=== PATIENT | female | born 1980 | race Two or more races ===

== ENCOUNTER 2021-01-22 07:28 | Day surgery (SDC) | payer OTHER ==
[2021-01-22] MEDS ORDERED: PERCOCET 5-3251 EACH PO (13:33)
== END 2021-01-22 16:15 | disposition home or self-care (01) ==
LOC: CIR.AMB 07:28
PROVIDERS: ATTEND Surgery
DX: C73 Malignant neoplasm of thyroid gland (principal); Z20.822 Contact with and (suspected) exposure to COVID-19

== ENCOUNTER 2021-01-23 08:47 | Emergency (ER) | payer OTHER ==
[~2021-01-23] VITALS: Ht 167.6 cm; Wt 72.6 kg
[~2021-01-23 08:47] MED LIST: PERCOCET 5-3251 EACH PO
== END 2021-01-23 15:06 | disposition home or self-care (01) ==
LOC: ER 08:47
DX: K52.9 Noninfective gastroenteritis and colitis, unspecified (principal); R11.11 Vomiting without nausea; E89.0 Postprocedural hypothyroidism

== ENCOUNTER 2021-04-18 09:00 | Inpatient (IN) | payer OTHER ==
[~2021-04-18] VITALS: Ht 165.1 cm; Wt 74.8 kg
[2021-04-24] MEDS ORDERED: PERCOCET 5-3251 EACH PO (08:54)
[2021-04-24] MEDS ORDERED: SYNTHROID112 MCG PO (08:55)
== END 2021-04-24 18:15 | disposition home or self-care (01) | DRG 627 ==
LOC: O/R 04-23 06:41 → SURG 04-23 06:41 → SURH 04-23 07:00 → SURG 04-23 13:26
PROVIDERS: ADMIT Surgery; ATTEND Surgery
PROC: 07T20ZZ Resection of Left Neck Lymphatic, Open Approach (ICD-10-PCS; 2021-04-23)
PROC: 4A12X4Z Monitoring of Cardiac Electrical Activity, External Approach (ICD-10-PCS; 2021-04-23)
PROC: 0GTG0ZZ Resection of Left Thyroid Gland Lobe, Open Approach (ICD-10-PCS; principal; 2021-04-23 07:00)
DX: C73 Malignant neoplasm of thyroid gland (principal)

== ENCOUNTER 2021-07-09 07:58 | Outpatient (CLI) | payer OTHER ==
[~2021-07-09 07:58] MED LIST changes: +SYNTHROID112 MCG PO
== END 2021-07-09 07:59 | disposition home or self-care (01) ==
LOC: NUCLEAR 07:58
PROVIDERS: ATTEND Internal Medicine Sports Medicine
DX: C73 Malignant neoplasm of thyroid gland (principal)
CPT/HCPCS: 79005; A9517

== ENCOUNTER 2021-07-16 07:12 | Outpatient (CLI) | payer OTHER | END 2021-07-16 07:17 | disposition home or self-care (01) | LOC: NUCLEAR 07:12 | PROVIDERS: ATTEND Internal Medicine Sports Medicine | DX: C73 Malignant neoplasm of thyroid gland (principal) ==

== ENCOUNTER → 2022-08-21 | Outpatient (CLI) | payer OTHER | END | disposition home or self-care (01) | LOC: NUCLEAR 12:19 | PROVIDERS: ATTEND Internal Medicine Sports Medicine | DX: C73 Malignant neoplasm of thyroid gland (principal) | CPT/HCPCS: 78016; A9548 ==

== ENCOUNTER 2024-08-18 08:26 | Outpatient (CLI) | payer OTHER | END 2024-08-18 08:30 | disposition home or self-care (01) | LOC: RAD 08:26 | PROVIDERS: ATTEND Physical Medicine & Rehabilitation Hospice and Palliative Medicine | DX: M54.2 Cervicalgia (principal); M75.41 Impingement syndrome of right shoulder ==